=== PATIENT | female | born 1980 ===

== ENCOUNTER 2022-01-26 13:34 | Emergency (ER) | payer OTHER ==
[~2022-01-26] VITALS: Ht 152.4 cm; Wt 113.4 kg
[2022-01-26] MEDS ORDERED: SYNTHROID88 MCG (13:59)
== END 2022-01-26 20:36 | disposition home or self-care (01) ==
LOC: ER 13:34
DX: R10.12 Left upper quadrant pain (principal); I10 Essential (primary) hypertension; E07.9 Disorder of thyroid, unspecified; Z88.8 Allergy status to other drugs, medicaments and biological substances; N20.0 Calculus of kidney; Z87.442 Personal history of urinary calculi

== ENCOUNTER 2022-07-02 05:16 | Emergency (ER) | payer OTHER ==
[~2022-07-02] VITALS: Ht 152.4 cm; Wt 112.5 kg
[~2022-07-02 05:16] MED LIST: SYNTHROID88 MCG
== END 2022-07-02 08:19 | disposition home or self-care (01) ==
LOC: ER 05:16
DX: R10.32 Left lower quadrant pain (principal); Z88.6 Allergy status to analgesic agent